=== PATIENT | female | born 1950 | race Caucasian/White ===

== ENCOUNTER 2016-05-09 07:15 | Emergency (ER) | payer MEDICARE, OTHER ==
[~2016-05-09] VITALS: Ht 167.6 cm; Wt 70.0 kg
[2016-05-09 07:18] VITALS: BP 157/74; PULSE 84; RESP 15; TEMP 98; O2SAT 98
--- NOTE | 2016-05-09 07:48 | PD ---
HPI Chief Complaint: Complaint Time Seen by Provider: 07:34 Travel History International Travel<30 days: No Contact w/Intl Traveler<30days: No Traveled to known affect area: No History of Present Illness HPI This is a 66-year-old female who has a history of frequent UTIs, presents today with complaints of urinary frequency and cloudy colored urine. She has been on the way to [place] from [facility] and she reports that they wanted to stop and get treated before they completed their trip to [place]. The patient denies any fevers, chills. She denies any flank pain or back pain. There are no other complaints time my examination. PFSH Past Medical History Cancer: Yes (BREAST) Tetanus Vaccination: < 5 Years Influenza Vaccination: Yes ?: Not Past Surgical History Appendectomy: Yes Gynecologic Surgery: Yes (OOPHORECTOMY) Mastectomy: Yes (BILATERAL ) Social History Alcohol Use: Yes (OCC) Tobacco Use: No Substance Use: No Allergies-Medications (Allergen,Severity, Reaction): Coded Allergies: Amoxicillin (Verified Allergy, Severe, Anaphylaxis, 05/09/16) Clindamycin (Verified Allergy, Severe, Anaphylaxis, 05/09/16) Sulfa (Verified Allergy, Severe, Anaphylaxis, 05/09/16) Reported Meds & Prescriptions Reported Meds & Active Scripts Active Macrobid (Nitrofurantoin Monoh/Nitrofur Macro) 100 Mg Cap 100 Mg PO BID Review of Systems Except as stated in HPI: all other systems reviewed are Neg General / Constitutional: No: Fever, Chills Genitourinary: Positive: Frequency, Other (cloudy colored urine) Musculoskeletal: No: Pain (no flank pain) Physical Exam Narrative GENERAL: Well-nourished, well-developed patient. SKIN: Warm and dry. HEAD: Normocephalic/atraumatic. MUSCULOSKELETAL: No cyanosis, or edema. BACK: Nontender without obvious deformity. No CVA tenderness. Data Data Last Documented VS Vital Signs Date Time Temp Pulse Resp B/P Pulse Ox O2 Delivery O2 Flow Rate FiO2 05/09/16 07:18 98.0 84 15 157/74 98 Orders Urinalysis - C+S If Indicated (05/09/16 07:34) Labs Laboratory Tests Test 05/09/16 07:35 Urine Color YELLOW Urine Turbidity CLEAR Urine pH 6.0 Urine Specific Datto 1.023 Urine Protein TRACE mg/dL Urine Glucose (UA) NEG mg/dL Urine Ketones NEG mg/dL Urine Occult Blood NEG Urine Nitrite NEG Urine Bilirubin NEG Urine Urobilinogen LESS THAN 2.0 MG/DL Urine Leukocyte Esterase NEG Urine WBC 2 /hpf Urine Squamous Epithelial <1 /hpf Cells Urine Calcium Oxalate Crystals MOD /hpf Urine Bacteria RARE /hpf Urine Mucus FEW /lpf Microscopic Urinalysis Comment CULT NOT INDICATED MDM Medical Decision Making Medical Screen Exam Complete: Yes Emergency Medical Condition: Yes Differential Diagnosis Cystitis versus pyelonephritis versus kidney stone Narrative Course 66-year-old female with history of frequent UTIs, presents today with urinary frequency and cloudy colored urine. Patient denies any fevers, chills. The patient denies any abdominal pain. The patient denies any flank pain. Urinalysis shows rare bacteria and 2 white blood cells. There are calcium oxalate crystals noted in the urine. Given her symptoms and her frequent UTIs, we will treat her with Macrobid 100 mg twice day 7 days. She is instructed to take as directed. She is also instructed to return to an emergency department if she develops any worsening symptoms i.e. abdominal pain, flank pain, fevers chills, or any other reason that concerned her. Diagnosis Primary Impression: Urinary frequency Additional Impression: BACTERIURIA Scripts Nitrofurantoin Monohydrate Macrocrystals (Macrobid)100 Mg [id number] Mg PO BID #14 CAP Ref 0 Prov:Fadi Belle MD 05/09/16 Disposition: DISCHARGE HOME Condition: Stable Fadi Belle MD May 09, 2016 07:48
[2016-05-09 08:01] LABS: BACTERIA, URINE RARE /hpf; BLOOD, URINE NEG (NEG); CALCIUM OXALATE CRYSTALS,URINE MOD /hpf; COMMENT (UR) CULT NOT INDICATED; CULTURE IF INDICATED CULT NOT INDICATED; GLUCOSE,URINE NEG (NEG); KETONE, URINE NEG (NEG); MUCUS URINE FEW /lpf (OCC); NITRITE,URINE NEG (NEG); SQUAMOUS EPITHELIAL CELL URINE <1 /hpf (0-5); URINE COLOR YELLOW (YELLW/STRAW)
[2016-05-09] MEDS ORDERED: MACR100C2 PO (08:09)
== END 2016-05-09 08:26 | disposition home or self-care (01) ==
LOC: NEPC 07:15
DX: R35.0 Frequency of micturition (principal); R82.71 Bacteriuria; Z87.440 Personal history of urinary (tract) infections
CPT/HCPCS: 81001; 99283